=== PATIENT | female | born 1985 | race Caucasian/White ===

== ENCOUNTER 2018-05-25 09:47 | Emergency (ER) | payer MEDICAID, OTHER ==
[2018-05-25] MEDS: ONDANSETRON 4 MG INJ IV (10:15)
[2018-05-25] MEDS: SOD CHLORIDE 0.9% 1,000 ML IV (10:15)
[2018-05-25] MEDS: morphine 4 MG/ML VIAL IV (10:15)
[2018-05-25 10:37] LABS: ADD MAN DIFF? NO
[2018-05-25 10:39] LABS: BASOPHILS % 0.3 % (0.0-2.0); EOSINOPHILS # 0.2 10^3/ul (0.0-0.5); EOSINOPHILS % 1.4 % (0.0-7.0); HEMATOCRIT 40.7 % (37.0-47.0); HEMOGLOBIN 13.1 g/dl (12.0-16.0); LYMPHOCYTES % 28.5 % (15.0-51.0); MEAN CORPUSCULAR HEMOGLOBIN 27.8 pg (29.0-33.0); MEAN CORPUSCULAR HGB CONC 32.2 g/dl (32.0-37.0); MEAN CORPUSCULAR VOLUME 86.2 fl (82.0-101.0); MEAN PLATELET VOLUME 12.2 fl (7.4-10.4); MONOCYTE # 0.7 10^3/ul (0.3-0.9); MONOCYTES % 6.5 % (0.0-11.0); NEUTROPHIL # 6.7 10^3/ul (1.6-7.5); NEUTROPHILS % 62.9 % (39.0-77.0); PLATELET COUNT 205 10^3/UL (140-415); RED BLOOD COUNT 4.72 10^6/ul (4.20-5.40); RED CELL DISTRIBUTION WIDTH 14.5 % (11.5-14.5)
[2018-05-25 10:39] LABS: WHITE BLOOD COUNT 10.7 10^3/ul (4.8-10.8)
[2018-05-25 10:43] LABS: ADD UMIC YES; UR ASCORBIC ACID NEGATIVE (NEGATIVE); UR BACTERIA MANY /HPF (NONE SEEN); UR BILIRUBIN (Dip) NEGATIVE (NEGATIVE); UR BLOOD (Dip) NEGATIVE (NEGATIVE); UR CLARITY CLOUDY (CLEAR); UR COLOR YELLOW (YELLOW); UR GLUCOSE (Dip) NEGATIVE (NEGATIVE); UR KETONES (Dip) NEGATIVE (NEGATIVE); UR LEUKOCYTE ESTERASE (Dip) NEGATIVE Leu/ul (NEGATIVE); UR MUCUS FEW /HPF (NONE SEEN); UR NITRITE (Dip) POSITIVE (NEGATIVE); UR RBC 0 /HPF (0-5); UR SPECIFIC GRAVITY (Dip) 1.032 (1.003-1.030); UR SQUAMOUS EPITHELIAL CELL MODERATE /HPF (FEW); UR TOTAL PROTEIN (Dip) 1+ mg/dl (NEGATIVE); UR UROBILINOGEN (Dip) NEGATIVE (NEGATIVE); UR WBC 0 /HPF (0-5)
[2018-05-25 10:59] LABS: ALANINE AMINOTRANSFERASE 19 IU/L (13-69); ALBUMIN 3.9 g/dl (3.3-4.9); ALBUMIN/GLOBULIN RATIO 1.21; ALKALINE PHOSPHATASE 78 IU/L (42-121); ANION GAP 15 (8-16); ASPARTATE AMINO TRANSFERASE 19 IU/L (15-46); BILIRUBIN,INDIRECT 0.3 mg/dl (0-1.1); BILIRUBIN,TOTAL 0.3 mg/dl (0.2-1.3); BLOOD UREA NITROGEN 14 mg/dl (7-20); CALCIUM 8.9 mg/dl (8.4-10.2); CARBON DIOXIDE 21 mmol/L (21-31); CHLORIDE 108 mmol/L (97-110); GLUCOSE 96 mg/dl (70-220); LIPASE 25 U/L (23-300); POTASSIUM 4.4 mmol/L (3.5-5.1); SODIUM 140 mmol/L (135-144); TOTAL PROTEIN 7.1 g/dl (6.1-8.1)
[2018-05-25] MEDS: KETOROLAC 30 MG INJ IV (12:19)
== END 2018-05-25 13:55 | disposition home or self-care (01) ==
LOC: FTE 09:47
DX: R10.13 Epigastric pain (principal); R11.10 Vomiting, unspecified; Z87.891 Personal history of nicotine dependence
CPT/HCPCS: 36415; 74176; 76705; 80053; 81001; 81025; 83690; 85025; 96361; 96374; 96375; 99285-25

== ENCOUNTER 2018-08-04 08:40 | Emergency (ER) | payer SELFPAY, MEDICAID ==
[2018-08-04 09:48] LABS: ADD MAN DIFF? NO
[2018-08-04 09:59] LABS: WHITE BLOOD COUNT 7.3 10^3/ul (4.8-10.8)
[2018-08-04 09:59] LABS: BASOPHILS % 0.4 % (0.0-2.0); EOSINOPHILS # 0.1 10^3/ul (0.0-0.5); EOSINOPHILS % 0.8 % (0.0-7.0); HEMATOCRIT 40.9 % (37.0-47.0); HEMOGLOBIN 13.2 g/dl (12.0-16.0); LYMPHOCYTES # 2.4 10^3/ul (0.8-2.9); LYMPHOCYTES % 33.4 % (15.0-51.0); MEAN CORPUSCULAR HEMOGLOBIN 27.8 pg (29.0-33.0); MEAN CORPUSCULAR HGB CONC 32.3 g/dl (32.0-37.0); MEAN CORPUSCULAR VOLUME 86.1 fl (82.0-101.0); MEAN PLATELET VOLUME 12.5 fl (7.4-10.4); MONOCYTE # 0.5 10^3/ul (0.3-0.9); MONOCYTES % 6.3 % (0.0-11.0); NEUTROPHIL # 4.3 10^3/ul (1.6-7.5); PLATELET COUNT 192 10^3/UL (140-415); RED BLOOD COUNT 4.75 10^6/ul (4.20-5.40); RED CELL DISTRIBUTION WIDTH 13.8 % (11.5-14.5)
[2018-08-04] MEDS: NAPROXEN 500 MG TAB PO (10:10)
[2018-08-04] MEDS: ONDANSETRON (ODT) 4 MG TAB ODT (10:11)
[2018-08-04] MEDS: HYDROCODONE/APAP (5/325) TAB PO (10:11)
[2018-08-04 10:24] LABS: ANION GAP 12 (8-16); BLOOD UREA NITROGEN 9 mg/dl (7-20); CALCIUM 9.1 mg/dl (8.4-10.2); CARBON DIOXIDE 24 mmol/L (21-31); CHLORIDE 109 mmol/L (97-110); CREATININE 0.57 mg/dl (0.44-1.00); GLUCOSE 94 mg/dl (70-220); POTASSIUM 3.9 mmol/L (3.5-5.1); SODIUM 141 mmol/L (135-144)
[2018-08-04 11:12] LABS: ERYTHROCYTE SEDIMENTATION RATE 27 mm/Hr (0-20)
[2018-08-04 12:08] LABS: C-REACTIVE PROTEIN 0.6 mg/dl (0.0-0.9)
== END 2018-08-04 12:42 | disposition home or self-care (01) ==
LOC: FTE 08:40
DX: M25.562 Pain in left knee (principal); F17.210 Nicotine dependence, cigarettes, uncomplicated
CPT/HCPCS: 29505; 36415; 73562; 80048; 85025; 85651; 86140; 93971; 99285-25

== ENCOUNTER 2018-10-17 18:11 | Emergency (ER) | payer OTHER ==
[2018-10-17] MEDS: ONDANSETRON 4 MG INJ IV (20:22)
[2018-10-17] MEDS: morphine 4 MG/ML VIAL IV (20:22)
[2018-10-17] MEDS: SOD CHLORIDE 0.9% 500 ML IV (20:22)
[2018-10-17 20:45] LABS: ADD MAN DIFF? NO
[2018-10-17 20:48] LABS: WHITE BLOOD COUNT 10.8 10^3/ul (4.8-10.8)
[2018-10-17 20:48] LABS: BASOPHILS % 0.4 % (0.0-2.0); EOSINOPHILS # 0.1 10^3/ul (0.0-0.5); EOSINOPHILS % 0.6 % (0.0-7.0); HEMATOCRIT 40.1 % (37.0-47.0); HEMOGLOBIN 13.1 g/dl (12.0-16.0); LYMPHOCYTES # 2.9 10^3/ul (0.8-2.9); LYMPHOCYTES % 26.6 % (15.0-51.0); MEAN CORPUSCULAR HEMOGLOBIN 28.7 pg (29.0-33.0); MEAN CORPUSCULAR HGB CONC 32.7 g/dl (32.0-37.0); MEAN CORPUSCULAR VOLUME 87.9 fl (82.0-101.0); MEAN PLATELET VOLUME 12.3 fl (7.4-10.4); MONOCYTE # 0.6 10^3/ul (0.3-0.9); MONOCYTES % 5.8 % (0.0-11.0); NEUTROPHIL # 7.2 10^3/ul (1.6-7.5); NEUTROPHILS % 66.3 % (39.0-77.0); PLATELET COUNT 215 10^3/UL (140-415); RED BLOOD COUNT 4.56 10^6/ul (4.20-5.40); RED CELL DISTRIBUTION WIDTH 14.1 % (11.5-14.5)
[2018-10-17 21:27] LABS: ADD UMIC YES; UR ASCORBIC ACID NEGATIVE (NEGATIVE); UR BACTERIA FEW /HPF (NONE SEEN); UR BILIRUBIN (Dip) 1+ mg/dL (NEGATIVE); UR BLOOD (Dip) NEGATIVE (NEGATIVE); UR CLARITY SLIGHTLY CLOUDY (CLEAR); UR COLOR YELLOW (YELLOW); UR GLUCOSE (Dip) NEGATIVE (NEGATIVE); UR KETONES (Dip) TRACE mg/dL (NEGATIVE); UR LEUKOCYTE ESTERASE (Dip) TRACE Leu/ul (NEGATIVE); UR MUCUS FEW /HPF (NONE SEEN); UR NITRITE (Dip) NEGATIVE (NEGATIVE); UR RBC 3 /HPF (0-5); UR SPECIFIC GRAVITY (Dip) 1.038 (1.003-1.030); UR SQUAMOUS EPITHELIAL CELL FEW /HPF (FEW); UR TOTAL PROTEIN (Dip) 2+ mg/dl (NEGATIVE); UR UROBILINOGEN (Dip) 1+ mg/dL (NEGATIVE); UR WBC 1 /HPF (0-5)
[2018-10-17 22:10] LABS: ALANINE AMINOTRANSFERASE 26 IU/L (13-69); ALBUMIN 3.4 g/dl (3.3-4.9); ALBUMIN/GLOBULIN RATIO 1.13; ALKALINE PHOSPHATASE 78 IU/L (42-121); ANION GAP 6 (5-13); ASPARTATE AMINO TRANSFERASE 20 IU/L (15-46); BILIRUBIN,INDIRECT 0.2 mg/dl (0-1.1); BILIRUBIN,TOTAL 0.2 mg/dl (0.2-1.3); BLOOD UREA NITROGEN 13 mg/dl (7-20); CALCIUM 8.2 mg/dl (8.4-10.2); CARBON DIOXIDE 27 mmol/L (21-31); CHLORIDE 107 mmol/L (97-110); CREATININE 0.56 mg/dl (0.44-1.00); Estimated GFR > 60 mL/min (>60); GLUCOSE 99 mg/dl (70-220); LIPASE 30 U/L (23-300); SODIUM 140 mmol/L (135-144); TOTAL PROTEIN 6.4 g/dl (6.1-8.1)
[2018-10-17 22:17] LABS: POTASSIUM 4.2 mmol/L (3.5-5.1)
[2018-10-17] MEDS: IOHEXOL 300MG/ML 150 ML BTL (22:57)
[2018-10-17] MEDS: SOD CHLORIDE 0.9% 100 ML (22:57)
[2018-10-18] MEDS: morphine 4 MG/ML VIAL IV (01:10)
[2018-10-18] MEDS: ONDANSETRON 4 MG INJ IV (01:10)
== END 2018-10-18 02:36 | disposition home or self-care (01) ==
LOC: FTE 10-18 02:36
DX: R10.33 Periumbilical pain (principal); F17.210 Nicotine dependence, cigarettes, uncomplicated
CPT/HCPCS: 36415; 74177; 80053; 81001; 81025; 83605; 83690; 85025; 96361; 96374; 96375; 96376; 99285-25